=== PATIENT | male | born 1960 | race Caucasian/White ===

== ENCOUNTER → 2024-08-08 09:50 | Outpatient (BNVA) | payer MEDICARE, BC, SELFPAY | PROVIDERS: PCP Nurse Practitioner Family; Visit Provider Family Medicine | DX: R06.09 Other forms of dyspnea (principal); E78.2 Mixed hyperlipidemia; I10 Essential (primary) hypertension; Z76.89 Persons encountering health services in other specified circumstances; F41.9 Anxiety disorder, unspecified; R73.03 Prediabetes; Z12.5 Encounter for screening for malignant neoplasm of prostate; R79.89 Other specified abnormal findings of blood chemistry; E55.9 Vitamin D deficiency, unspecified | CPT/HCPCS: 80053; 80061; 82306; 82607; 82746; 83036; 83540; 84443; 85025; G0103 ==